=== PATIENT | female | born 1970 ===

== ENCOUNTER 2017-09-09 08:32 | Day surgery (SDC) | payer BC ==
[~2017-09-09 08:32] MED LIST: Lactated Ringers 1,000 ML IV SCH; Lidocaine 1%/Sod Bicarbonate in NS 8.4% 1 ML Syringe IV PRN; Sodium Chloride 0.9% 10 ML Syringe FLUSH PRN
[2017-09-09] MEDS ORDERED: Bupivacaine 0.5% 30 ML SDV ONE (08:53)
[2017-09-09] MEDS ORDERED: Scopolamine 1.5 MG Transdermal Patch TOP ONE (09:59)
--- NOTE | 2017-09-09 10:07 | PCM.PREANE ---
Preanesthetic Assessment - Anesthesia/Transfusion/Family Hx Anesthesia History: Prior Anesthesia Reaction Family History of Anesthesia Reaction: No Transfusion History: No Prior Transfusion(s) - Review of Systems General: No Symptoms Pulmonary: No Symptoms Cardiovascular: No Symptoms Gastrointestinal: No Symptoms Neurological: No Symptoms Other: Reports: Thyroid Problems - Physical Assessment NPO Status Date: 09/08/17 NPO Status Time: 18:45 Pulse: 77 O2 Sat by Pulse Oximetry: 98 Respiratory Rate: 16 Blood Pressure: 125/94 Temperature: 37.4 C Vital Signs: Last Vital Signs Temp 37.4 C 09/09/17 08:30 Pulse 77 09/09/17 08:30 Resp 16 09/09/17 08:30 BP 125/94 H 09/09/17 08:30 Pulse Ox 98 09/09/17 08:30 Height: 1.68 m Weight: 80.739 kg ASA Class: 2 Mental Status: Alert & Oriented x3 Dentition: Reports: Normal Dentition Thyro-Mental Finger Breadths: 3 Mouth Opening Finger Breadths: 3 ROM/Head Extension: Full Lungs: Clear to Auscultation, Normal Respiratory Effort Cardiovascular: Regular Rate, Regular Rhythm, No Murmurs - Lab Values: Laboratory Last Values WBC 7.21 K/mm3 (3.98-10.04) 09/08/17 15:01 RBC 5.35 M/mm3 (3.98-5.22) H 09/08/17 15:01 Hgb 14.8 gm/L (11.2-15.7) 09/08/17 15:01 Hct 44.4 % (34.1-44.9) 09/08/17 15:01 MCV 83.0 fl (79.4-94.8) 09/08/17 15:01 MCH 27.7 pg (25.6-32.2) 09/08/17 15:01 MCHC 33.3 g/dl (32.2-35.5) 09/08/17 15:01 RDW Std Deviation 44.4 fL (36.4-46.3) 09/08/17 15:01 Plt Count 357 K/mm3 (182-369) 09/08/17 15:01 MPV 9.7 fl (9.4-12.3) 09/08/17 15:01 Neut % (Auto) 60.4 % (34.0-71.1) 09/08/17 15:01 Lymph % (Auto) 30.8 % (19.3-51.7) 09/08/17 15:01 Turner % (Auto) 7.4 % (4.7-12.5) 09/08/17 15:01 Eos % (Auto) 0.7 (0.7-5.8) 09/08/17 15:01 Baso % (Auto) 0.6 % (0.1-1.2) 09/08/17 15:01 Neut # (Auto) 4.36 K/mm3 (1.56-6.13) 09/08/17 15:01 Lymph # (Auto) 2.22 K/mm3 (1.18-3.74) 09/08/17 15:01 Turner # (Auto) 0.53 K/mm3 (0.24-0.36) H 09/08/17 15:01 Eos # (Auto) 0.05 K/mm3 (0.04-0.36) 09/08/17 15:01 Baso # (Auto) 0.04 K/mm3 (0.01-0.08) 09/08/17 15:01 Creatinine 0.9 mg/dL (0.55-1.02) 09/08/17 15: Est Cr Clr Drug Dosing TNP 09/08/17 15:01 Estimated GFR (MDRD) > 60 mL/min (>60) 09/08/17 15:01 Urine Color Yellow (Yellow) 09/08/17 15: Urine Appearance Clear (Clear) 09/08/17 15: Urine pH 6.0 (5.0-8.0) 09/08/17 15: Ur Specific [place] 1.010 (1.005-1.030) 09/08/17 15:01 Urine Protein Negative (Negative) 09/08/17 15: Urine Glucose (UA) Negative (Negative) 09/08/17 15: Urine Ketones Negative (Negative) 09/08/17 15: Urine Occult Blood Negative (Negative) 09/08/17 15: Urine Nitrite Negative (Negative) 09/08/17 15: Urine Bilirubin Negative (Negative) 09/08/17 15: Urine Urobilinogen 0.2 (0.2-1.0) 09/08/17 15:01 Ur Leukocyte Esterase Negative (Negative) 09/08/17 15:01 Blood Type A NEGATIVE 09/08/17 15:01 Gel Antibody Screen Negative 09/08/17 15:01 - Allergies Allergies/Adverse Reactions: Allergies Allergy/AdvReac Type Severity Reaction Status Date / Time No Known Allergies Allergy Verified 11/01/16 07:36 - Anesthesia Plan Pre-Op Medication Ordered: None - Acknowledgements Anesthesia Type Planned: General Anesthesia Pt an Appropriate Candidate for the Planned Anesthesia: Yes Alternatives and Risks of Anesthesia Discussed w Pt/Guardian: Yes Pt/Guardian Understands and Agrees with Anesthesia Plan: Yes PreAnesthesia Questionnaire HEENT History: Reports: Impaired Vision, Other (See Below) Other HEENT History: wears glasses Cardiovascular History: Reports: High Cholesterol Respiratory History: Reports: Asthma Gastrointestinal History: Reports: None Genitourinary History: Reports: UTI, Recurrent, Other (See Below) Other Genitourinary History: frequency COMMUNITY RELATIONS ADVISOR History: Reports: Other (See Below) Other OB/BYN History: enlarged uterus, fibroids, menorrhagia, endometrial ablation, hysteroscopy, polypectomy Musculoskeletal History: Reports: Other (See Below) Other Musculoskeletal History: Upper Back muscle spasms, thoracic back pain Neurological History: Reports: None Psychiatric History: Reports: Other (See Below) Other Psychiatric History: onetime occurace of anxiet/panic attack about a year ago Endocrine/Metabolic History: Reports: Hypothyroidism, Vitamin D Deficiency, Other (See Below) Other Endocrine/Metabolic History: hair loss Hematologic History: Reports: Other (See Below) Other Hematologic History: leukopenia Immunologic History: Reports: None Oncologic (Cancer) History: Reports: None Dermatologic History: Reports: Other (See Below) Other Dermatologic History: cold sores, rosacea, non-healing skin lesion, rash, tinea corposis - Past Surgical History Head Surgeries/Procedures: Reports: None HEENT Surgical History: Reports: None Cardiovascular Surgical History: Reports: None Respiratory Surgical History: Reports: None GI Surgical History: Reports: Cholecystectomy Female Surgical History: Reports: Hysterectomy, Other (See Below) Other Female Surgeries/Procedures: uterine mymectomy laparoscopic ablation Endocrine Surgical History: Reports: None Neurological Surgical History: Reports: None Musculoskeletal Surgical History: Reports: None Dermatological Surgical History: Reports: None - SUBSTANCE USE Smoking Status *Q: Never Smoker Tobacco Use Within Last Twelve Months: No Second Hand Smoke Exposure: No Days Per Week of Alcohol Use: 0 Number of Drinks Per Day: 0 Total Drinks Per Week: 0 Recreational Drug Use History: No - HOME MEDS Home Medications: Home Meds Albuterol Sulfate [Proair Hfa] 1 - 2 puff INH Q4HR PRN 10/31/16 [History] Doxycycline [Vibramycin] 1 cap PO DAILY 10/31/16 [History] Lactobacillus Combination No.4 [Probiotic] 1 cap PO DAILY 10/31/16 [History] Multivitamin [Multi-Day Vitamins] 1 tab PO DAILY 10/31/16 [History] valACYclovir HCl [valACYclovir] 1 tab PO Q12H PRN 10/31/16 [History] Cholecalciferol (Vitamin D3) [Vitamin D3] 2,000 unit PO DAILY 09/08/17 [History] Ferrous Sulfate [Iron] 325 mg PO DAILY 09/08/17 [History] Levothyroxine [Synthroid] 50 mcg PO DAILY 09/08/17 [History] - CURRENT (IN HOUSE) MEDS Current Meds: Current Medications Lactated Ringer's (Ringers, Lactated) 1,000 mls @ 125 mls/hr IV ASDIRECTED [facility] Last Admin: 09/09/17 08:50 Dose: 125 mls/hr Lidocaine/Sodium Bicarbonate (Buffered Lidocaine 1% In Ns 8.4%) 0.25 ml IV ONETIME PRN PRN Reason: Prior to IV Start Last Admin: 09/09/17 08:49 Dose: 0.25 ml Scopolamine (Transderm-Scop) 1.5 mg TOP ONETIME ONE Stop: 09/09/17 10:00 Sodium Chloride (Saline Flush) 10 ml FLUSH ASDIRECTED PRN PRN Reason: Keep Vein Open Discontinued Medications Bupivacaine HCl (Marcaine 0.5%) Confirm Administered Dose 30 ml .ROUTE .STK-MED ONE Stop: 09/09/17 08:54
[2017-09-09] MEDS ORDERED: Propofol 200 MG/20 ML SDV ONE (10:10)
[2017-09-09] MEDS ORDERED: fentaNYL 250 MCG/5 ML SDV ONE (10:12)
[2017-09-09] MEDS ORDERED: Rocuronium 50 MG/5 ML Vial ONE (10:12)
[2017-09-09] MEDS ORDERED: Midazolam 1 MG/ML 2 ML SDV ONE (10:14)
[2017-09-09] MEDS ORDERED: ceFAZolin 1 GM Vial ONE ×2 (10:43→11:03)
[2017-09-09] MEDS ORDERED: Ondansetron 4 MG/2 ML SDV ONE (10:44)
[2017-09-09] MEDS ORDERED: HYDROmorphone 0.5 MG/0.5 ML Syringe IVPUSH PRN (10:53)
[2017-09-09] MEDS ORDERED: Ondansetron 4 MG/2 ML SDV IVPUSH PRN ×2 (10:53→11:23)
[2017-09-09] MEDS ORDERED: Meperidine PF 50 MG/ML Syringe IVPUSH PRN (10:53)
[2017-09-09] MEDS ORDERED: fentaNYL 100 MCG/2 ML SDV IVPUSH PRN (10:53)
[2017-09-09] MEDS ORDERED: HYDROmorphone 1 MG/ML Syringe ONE (11:04)
[2017-09-09] MEDS ORDERED: Acetaminophen/oxyCODONE 325-5 MG Tab PO PRN (11:23)
--- NOTE | 2017-09-09 11:32 | PCM.OPNOTE ---
- General Post-Op/Procedure Note Date of Surgery/Procedure: 09/09/17 Operative Procedure(s): Laparoscopy with left oophorectomy Findings: Ovarian cyst left ovary. Uterus and right ovary along with bilateral flow tubes were surgically absent. 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 Post-Op Diagnosis: Same Anesthesia Technique: General ET Tube Other Anesthesia Type: Marcaine 0.5% local at 3 laparoscopic incision sites Primary Surgeon: Stephan Kumar Secondary Surgeon: Chalo Bal Anesthesia Provider: Terrie Solomon Reliability Technician: Lilly Cooper Reason Reliability Technician Was Necessary: Patient safety, retraction, quality of care Role of Reliability Technician: Retraction, quality of care, patient safety Pathology: Left ovary Fluid Replacement, Intraop: 1,100 (Crystalloid) Output, Urine Amount: 50 EBL in mLs: 10 Drain/Tube Comments:: Indwelling bladder catheter during surgery, removed at the end of the case. Complications: None Condition: Good Free Text/Narrative:: Surgery duration: 58 minutes Procedure: The patient was taken to the operating room and placed in a supine position on the operating table. General endotracheal anesthesia was administered. It should be noted that she received Ancef 2 g IV preop for infection prophylaxis and had sequential compression stockings in place for DVT prophylaxis. After adequate anesthesia patient placed in a dorsal lithotomy position. She is prepped and draped in usual fashion. A Oseguera catheter was placed. Sponge stick was placed in vagina. Infraumbilical suprapubic incision sites were then developed using Marcaine 0.5% as local. Approximately 5 mL used in each side. A left lateral incision port site was also established. The latter 2 port sites were developed under direct visualization with laparoscope. After upper incision is made verres needle was placed, pneumoperitoneum was established using approximately 2.4 L of CO2. Lap scopic sleeve and trocar then placed and the laparoscope was then placed. The pelvis was evaluated and no abnormal findings noted with the exception some adhesions of the bowel located to the vaginal cuff. These were taken down. The Enseal vessel closure system was used for developing the left inferior pelvic ligament by cross clamping and cauterizing. Vaginal cuff adhesions were taken down using same. When hemostasis was confirmed. The ovary was placed in an Endo Catch bag and brought up through the lower incision. The fascial layer was enlarged only enough to remove the cyst. The ovary was somewhat enlarged and appeared to have a simple cyst present. It is approximately 4 cm x 3 cm x 3 cm in size. It was removed intact and without rupturing. It was sent for histologic evaluation. The fascial layers and closed directly with 0 Vicryl suture in a short running stitch. A laparoscope was used to ensure adequate closure of the suprapubic incision and a was used to monitor the left lateral port site. Upper port site was then removed after pneumoperitoneum was reversed. All incision sites were closed at the skin level with 3-0 Monocryl. The suprapubic site was closed with a short running stitch of 3-0 Monocryl and the others were interrupted suture of 3-0 Monocryl. At this point the patient was returned to supine position and Oseguera catheter and sponge stick were removed. The patient was awakened from general endotracheal anesthesia left the operating room in good condition.
--- NOTE | 2017-09-09 11:33 | PCM.POSTAN ---
POST ANESTHESIA ASSESSMENT - MENTAL STATUS Mental Status: Alert, Oriented - VITAL SIGNS Pulse Rate: 94 SaO2: 98 Resp Rate: 11 Blood Pressure: 131/86 Temperature: 98.0 C - RESPIRATORY Respiratory Status: Respiratory Rate WNL, Airway Patent, O2 Saturation Stable - CARDIOVASCULAR CV Status: Pulse Rate WNL, Blood Pressure Stable - GASTROINTESTINAL GI Status: No Symptoms - PAIN Pain Score: 0 - POST OP HYDRATION Hydration Status: Adequate & Stable
--- NOTE | 2017-09-09 12:19 | PCM48HPAN ---
Post Anesthesia Note - EVALUATION WITHIN 48HRS OF ANESTHETIC Vital Signs in Normal Range: Yes Patient Participated in Evaluation: Yes Respiratory Function Stable: Yes Airway Patent: Yes Cardiovascular Function Stable: Yes Hydration Status Stable: Yes Pain Control Satisfactory: Yes Nausea and Vomiting Control Satisfactory: Yes Mental Status Recovered: Yes - COMMENTS/OBSERVATIONS Free Text/Narrative:: Pt resting quietly. No c/o pain at this time.
[2017-09-09] MEDS ORDERED: Haloperidol Lactate 5 MG/ML SDV IVPUSH ONE (13:17)
[2017-09-09 15:33] VITALS: BP 123/84
== END 2017-09-09 16:20 | disposition home or self-care (01) ==
LOC: JD.SDS 08:32
PROVIDERS: ATTEND Obstetrics & Gynecology
DX: N83.202 Unspecified ovarian cyst, left side (principal); J45.909 Unspecified asthma, uncomplicated; E03.9 Hypothyroidism, unspecified; E55.9 Vitamin D deficiency, unspecified; Z79.2 Long term (current) use of antibiotics; Z79.899 Other long term (current) drug therapy; Z86.39 Personal history of other endocrine, nutritional and metabolic disease; Z90.49 Acquired absence of other specified parts of digestive tract; Z90.710 Acquired absence of both cervix and uterus
CPT/HCPCS: 36415; 58661; 81003; 82565; 85025; 86850; 86900; 86901; A9270; J0690; J1170; J1630; J2250; J2405; J3010; J7120; 00840; J2704

== ENCOUNTER 2017-11-13 06:01 | Day surgery (SDC) | payer BC ==
[~2017-11-13 06:01] MED LIST changes: -Lidocaine 1%/Sod Bicarbonate in NS 8.4% 1 ML Syringe IV PRN; +Scopolamine 1 MG Transdermal Patch TRDERM PRN
[2017-11-13] MEDS ORDERED: Ropivacaine 0.5% 5 MG/ML 30 ML SDV ONE (06:18)
[2017-11-13] MEDS ORDERED: EPINEPHrine 1 MG/ML SDV ONE (06:18)
[2017-11-13] MEDS: Lidocaine 1%/Sod Bicarbonate in NS 8.4% 1 ML Syringe PRN ×2 (06:24→06:35)
[2017-11-13] MEDS ORDERED: Lidocaine 1% 0 ML ONE (06:38)
[2017-11-13] MEDS ORDERED: Propofol 200 MG/20 ML SDV ONE (06:39)
[2017-11-13] MEDS ORDERED: Midazolam 1 MG/ML 2 ML SDV ONE (06:39)
[2017-11-13] MEDS ORDERED: fentaNYL 250 MCG/5 ML SDV ONE (06:39)
--- NOTE | 2017-11-13 06:40 | PCM.PREANE ---
Preanesthetic Assessment - Anesthesia/Transfusion/Family Hx Anesthesia History: Prior Anesthesia Reaction Type of Anesthesia Reaction: Excessive Nausea/Vomiting Transfusion History: No Prior Transfusion(s) - Review of Systems General: No Symptoms Pulmonary: No Symptoms, Shortness of Breath (With extreme activity. Able to walk up a flight of stairs without problems. ) Cardiovascular: No Symptoms Gastrointestinal: No Symptoms Neurological: Other (Occasional back pain, sore muscle. ) Other: Reports: Thyroid Problems, Anxiety - Physical Assessment NPO Status Date: 11/12/17 NPO Status Time: 20:30 Pulse: 66 O2 Sat by Pulse Oximetry: 100 Respiratory Rate: 16 Blood Pressure: 128/93 Temperature: 98.4 C Weight: 83 kg ASA Class: 2 Mental Status: Alert & Oriented x3 Airway Class: Mallampati = 1 Dentition: Reports: Normal Dentition Thyro-Mental Finger Breadths: 3 Mouth Opening Finger Breadths: 3 ROM/Head Extension: Full Lungs: Clear to Auscultation, Normal Respiratory Effort Cardiovascular: Regular Rate, Regular Rhythm - Lab Values: Laboratory Last Values MRSA (PCR) Negative 10/29/17 13:59 - Allergies Allergies/Adverse Reactions: Allergies Allergy/AdvReac Type Severity Reaction Status Date / Time No Known Allergies Allergy Verified 11/12/17 15:50 - Acknowledgements Anesthesia Type Planned: General Anesthesia, Regional Block Pt an Appropriate Candidate for the Planned Anesthesia: Yes Alternatives and Risks of Anesthesia Discussed w Pt/Guardian: Yes Pt/Guardian Understands and Agrees with Anesthesia Plan: Yes PreAnesthesia Questionnaire HEENT History: Reports: Impaired Vision, Other (See Below) Other HEENT History: wears glasses Cardiovascular History: Reports: High Cholesterol Respiratory History: Reports: Asthma Gastrointestinal History: Reports: None Genitourinary History: Reports: UTI, Recurrent, Other (See Below) Other Genitourinary History: frequency, UTI CARDIOVASCULAR TECH History: Reports: , Other (See Below) Other OB/BYN History: enlarged uterus, fibroids, menorrhagia, endometrial ablation, hysteroscopy, polypectomy Musculoskeletal History: Reports: Other (See Below) Other Musculoskeletal History: Upper Back muscle spasms, thoracic back pain Neurological History: Reports: None Psychiatric History: Reports: Anxiety, Other (See Below) Other Psychiatric History: onetime occurace of anxiet/panic attack about a year ago Endocrine/Metabolic History: Reports: Hypothyroidism, Vitamin D Deficiency, Other (See Below) Other Endocrine/Metabolic History: hair loss Hematologic History: Reports: Other (See Below) Other Hematologic History: leukopenia Immunologic History: Reports: None Oncologic (Cancer) History: Reports: None Dermatologic History: Reports: Other (See Below) Other Dermatologic History: cold sores, rosacea, non-healing skin lesion, rash, tinea corposis - Past Surgical History Head Surgeries/Procedures: Reports: None HEENT Surgical History: Reports: None Cardiovascular Surgical History: Reports: None Respiratory Surgical History: Reports: None GI Surgical History: Reports: Cholecystectomy Female Surgical History: Reports: Hysterectomy, Oophorectomy, Other (See Below) Other Female Surgeries/Procedures: uterine mymectomy laparoscopic ablation Endocrine Surgical History: Reports: None Neurological Surgical History: Reports: None Musculoskeletal Surgical History: Reports: None Dermatological Surgical History: Reports: None - SUBSTANCE USE Smoking Status *Q: Never Smoker Tobacco Use Within Last Twelve Months: No Second Hand Smoke Exposure: No Days Per Week of Alcohol Use: 0 Number of Drinks Per Day: 0 Total Drinks Per Week: 0 Recreational Drug Use History: No - HOME MEDS Home Medications: Home Meds Albuterol Sulfate [Proair Hfa] 1 - 2 puff INH Q4HR PRN 10/31/16 [History] Doxycycline [Vibramycin] 1 cap PO DAILY 10/31/16 [History] Multivitamin [Multi-Day Vitamins] 1 tab PO DAILY 10/31/16 [History] valACYclovir HCl [valACYclovir] 1 tab PO Q12H PRN 10/31/16 [History] Cholecalciferol (Vitamin D3) [Vitamin D3] 2,000 unit PO DAILY 09/08/17 [History] Levothyroxine [Synthroid] 50 mcg PO DAILY 09/08/17 [History] Calcium Carbonate [Calcium] 1,000 mg PO DAILY 11/12/17 [History] Theanine [l-Theanine] 1 dose PO TID 11/12/17 [History] - CURRENT (IN HOUSE) MEDS Current Meds: Current Medications Lactated Ringer's (Ringers, Lactated) 1,000 mls @ 125 mls/hr IV ASDIRECTED [facility] Stop: 11/13/17 23:00 Lidocaine/Sodium Bicarbonate (Buffered Lidocaine 1% In Ns 8.4%) 0.25 ml .XX ONETIME PRN PRN Reason: Prior to IV Start Stop: 11/13/17 18:00 Scopolamine (Scopolamine) 1 each TRDERM Q72H PRN PRN Reason: Nausea Stop: 11/13/17 18:00 Sodium Chloride (Saline Flush) 10 ml FLUSH ASDIRECTED PRN PRN Reason: Keep Vein Open Stop: 11/13/17 18:00 Discontinued Medications Bupivacaine HCl (Marcaine 0.25%) Confirm Administered Dose 30 ml .ROUTE .STK- MED ONE Stop: 11/13/17 06:18 Epinephrine HCl (Adrenalin) Confirm Administered Dose 30 mg .ROUTE .STK-MED ONE Stop: 11/13/17 06:18 Epinephrine HCl (Adrenalin) Confirm Administered Dose 1 mg .ROUTE .STK-MED ONE Stop: 11/13/17 06:19 Fentanyl (Sublimaze) Confirm Administered Dose 250 mcg .ROUTE .STK-MED ONE Stop: 11/13/17 06:40 Lidocaine HCl (Xylocaine-Mpf 1%) Confirm Administered Dose 4 mls @ as directed .ROUTE .STK-MED ONE Stop: 11/13/17 06:39 Midazolam HCl (Versed 1 Mg/Ml) Confirm Administered Dose 2 mg .ROUTE .STK-MED ONE Stop: 11/13/17 06:40 Propofol (Diprivan 20 Ml) Confirm Administered Dose 400 mg .ROUTE .STK-MED ONE Stop: 11/13/17 06:40 Ropivacaine (Naropin 0.5%) Confirm Administered Dose 30 ml .ROUTE .STK-MED ONE Stop: 11/13/17 06:19
[2017-11-13] MEDS: EPINEPHrine 1 MG/ML 30 ML MDV ONE ×2 (08:01→12:00)
[2017-11-13] MEDS ORDERED: HYDROmorphone 0.5 MG/0.5 ML Syringe IVPUSH PRN (08:15)
[2017-11-13] MEDS ORDERED: Haloperidol Lactate 5 MG/ML SDV IVPUSH PRN (08:15)
[2017-11-13] MEDS ORDERED: fentaNYL 100 MCG/2 ML SDV IVPUSH PRN (08:15)
[2017-11-13] MEDS: Bupivacaine 0.25% 30 ML SDV ONE ×2 (08:23→12:01)
[2017-11-13] MEDS ORDERED: Albuterol 6.7 GM Inhaler INH ONE (08:35)
[2017-11-13] MEDS ORDERED: Lactated Ringers 1,000 ML ONE (08:41)
[2017-11-13] MEDS ORDERED: Ketorolac 30 MG/ML SDV ONE (08:41)
--- NOTE | 2017-11-13 08:56 | PCM.POSTAN ---
POST ANESTHESIA ASSESSMENT - MENTAL STATUS Mental Status: Alert, Oriented - VITAL SIGNS Pulse Rate: 112 SaO2: 97 Resp Rate: 18 Blood Pressure: 126/83 Temperature: 36.2 C - RESPIRATORY Respiratory Status: Respiratory Rate WNL, Airway Patent, O2 Saturation Stable, Supplemental Oxygen - CARDIOVASCULAR CV Status: Blood Pressure Stable, Elevated Pulse Rate Free Text/Narrative:: Crying. Patient states she feels relieved. - GASTROINTESTINAL GI Status: No Symptoms - PAIN Pain Score: 0 Free Text/Narrative:: Denies pain able to wiggle fingers. Shoulder numb and heavy per patient. - POST OP HYDRATION Hydration Status: Adequate & Stable
--- NOTE | 2017-11-13 09:56 | PCM.SN ---
- Free Text/Narrative Note: Anesthesia Note: (Interscalene block note) Date: 11/13/2017 Time Out: 0700 Start: 07 Stop: 719 Surgical Procedure: Left Shoulder Video Arthroscopy with Subacromial Decompression. Diagnosis: Left Shoulder Impingement Current Procedure: Left interscalene block under US guidance for postoperative pain control requested by Dr. Childs. Patient chart reviewed, risk/benefits discussed with patient, consent obtained. Patient positioned supine, monitors/alarms on, oxygen placed via nasal cannula at 2 LPM. IV sedation administered: Versed 2mg IV @ 0700 Fentanyl 100 mcg IV @ 0700 Left shoulder prepped with two chloropreps. Sterile drapes placed with aseptic technique noted. Under US guidance, left subclavian artery visualized along with the left brachial plexus. Plexus followed up to C6 cricoid level, and area localized with 2mls of 1% lidocaine. 22gauge 2 inch stimiplex needle advanced under US with 0.5mV with stimulation of biceps noted. Good stimulation noted with decreased voltage and absent at 0.2mVs. 1ml of Normal Saline injected with loss of stimulation noted to confirm needle not placed intraneurally. Incremental dosing of 5mls with negative aspiration noted prior to each injection of 0.5% ropivacaine with 1:200,000 epinephrine. Total volume=30mls.
--- NOTE | 2017-11-13 09:57 | PCM48HPAN ---
Post Anesthesia Note - EVALUATION WITHIN 48HRS OF ANESTHETIC Vital Signs in Normal Range: Yes Patient Participated in Evaluation: Yes Respiratory Function Stable: Yes Airway Patent: Yes Cardiovascular Function Stable: Yes Hydration Status Stable: Yes Pain Control Satisfactory: Yes Nausea and Vomiting Control Satisfactory: Yes Mental Status Recovered: Yes
[2017-11-13 12:04] VITALS: BP 117/77
--- NOTE | 2017-11-18 10:58 | PCM.OPNOTE ---
- General Post-Op/Procedure Note Date of Surgery/Procedure: 11/13/17 Operative Procedure(s): left shoulder video arthroscopy with subacromail decompression and extensive debridement Pre Op Diagnosis: left shoulder subacromial impingement Post-Op Diagnosis: Same Anesthesia Technique: General ET Tube, Regional Block Primary Surgeon: Dale Childs Anesthesia Provider: Deloris Hodgson Sound System Installer: Cindy Jimenez EBL in mLs: 5 Complications: None Condition: Good
--- NOTE | 2017-11-18 12:55 | OR ---
DATE OF OPERATION: 11/13/2017 SURGEON: Dale Childs MD OPERATION PERFORMED: Left shoulder video arthroscopy with subacromial decompression and extensive debridement. PREOPERATIVE DIAGNOSIS: Left shoulder subacromial impingement. POSTOPERATIVE DIAGNOSIS: Left shoulder subacromial impingement. ANESTHESIA: Technique: General endotracheal intubation with regional interscalene block. ANESTHESIA PROVIDER: Deloris Richardson CRNA. MANAGER CARD: Cindy Jimenez PA-C ESTIMATED BLOOD LOSS: 5 mL. COMPLICATIONS: None. CONDITION: Stable. DESCRIPTION OF PROCEDURE: The patient was identified in the preoperative holding area. Proper site was marked and identified by the surgeon. The patient was taken back to the operating theater where, after adequate anesthesia, the patient was placed in a lazy right lateral decubitus position. A wedge was placed posteriorly. All bony prominences were well padded. The left shoulder was then sterilely prepped and draped in the usual sterile fashion. OR time-out was performed. The patient received 2 g IV Ancef. At this time, 12 pounds of traction was applied to the left upper extremity. A standard posterior incision was made. The scope trocar was introduced to the glenohumeral joint. The patient's biceps tendon was intact. There were no signs of undersurface of the rotator cuff tear. There were no signs of chondromalacia. The subscapularis tendon was intact. With the use of a spinal, anterior portal was created. The patient did have a minor amount of synovitis and this was debrided at this time. Attention was then turned to the subacromial space. The patient was noted to have extensive synovitis. At this time, synovectomy and debridement was then performed of the subacromial space. The lateral portal was then created. The patient was noted to have a type 3 acromion with significant anterior hook. At this time, with the use of a 4-0 full-radius joaquin was brought back to a smooth type 1 border by performing an acromioplasty. The patient was noted to have significant increased interval in the anterior space after this was completed. At this time, final pictures were taken. The bursal side of the rotator cuff was intact. 3-0 nylon simple suture was used for closure of the skin. The patient was placed in a sling and sent to the PACU in stable condition. MMODAL /[id number]
== END 2017-11-13 11:50 | disposition home or self-care (01) ==
LOC: JD.SDS 06:01
PROVIDERS: ATTEND Orthopaedic Surgery
DX: M75.42 Impingement syndrome of left shoulder (principal); F41.9 Anxiety disorder, unspecified; J45.909 Unspecified asthma, uncomplicated; E03.9 Hypothyroidism, unspecified; Z79.2 Long term (current) use of antibiotics; Z79.899 Other long term (current) drug therapy
CPT/HCPCS: 29823; 29826; 64415; 87641; A9270; J0171; J1885; J2250; J2795; J3010; J3490; J7120; 01630; J2001; J2704